=== PATIENT | female | born 1990 | race Caucasian/White ===

== ENCOUNTER 2017-05-18 08:40 | Emergency (ER) | payer MEDICAID ==
[~2017-05-18] VITALS: Ht 154.9 cm; Wt 58.0 kg
[~2017-05-18 08:40] MED LIST: ACET500C5 PO; IBUP-1542 PO; MECL25TA2 PO; ONDA4TAB14 PO; PREN-46 PO; TRAM50TA2 PO
[2017-05-18 08:44] VITALS: Ht 154.9 cm; Wt 58.0 kg
--- NOTE | 2017-05-18 09:08 | ERD ---
ER Documentation Chief Complaint Date/Time DATE: 05/18/17 TIME: 09:07 Chief Complaint pelvic pain x 1 month HPI 26-year-old female presenting to the emergency department complaining of intermittent, 7 out of 10, crampy pelvic pain that radiates to her back for the past 1 month. Patient admits to having associated nausea. She has had a couple episodes of vomiting in this past month. She denies any sexual activity. She denies vaginal discharge. She states that her last menstrual period was April 26 and was a regular lasting 2 days and describes does not like menstrual period. Patient denies diarrhea, constipation. She denies any and medications for this. She denies any relevant medical problems ROS All systems reviewed and are negative except as per history of present illness. Medications Home Meds Active Scripts Ibuprofen* (Motrin*) 600 Mg Tab, 600 MG PO Q6H Y for PAIN AND OR ELEVATED TEMP, #30 TAB Prov:JOSSIE LUNSFORD PA-C 05/18/17 Ibuprofen* (Motrin*) 600 Mg Tab, 600 MG PO Q6H Y for PAIN AND OR ELEVATED TEMP, #30 TAB Prov:GUI SANTAMARIA NP 10/17/16 Tramadol HCl (Tramadol HCl) 50 Mg Tablet, 50 MG PO Q4 Y for PAIN, #10 TAB Prov:SCARLETT CABRERA PA-C 09/27/16 Ondansetron (Ondansetron Odt) 4 Mg Tab.rapdis, 4 MG PO Q6H Y for NAUSEA AND/OR VOMITING, #15 TAB Prov:SCARLETT CABRERA PA-C 09/27/16 Acetaminophen* (Tylophen*) 500 Mg Capsule, 1 CAP PO Q6H Y for PAIN AND OR ELEVATED TEMP, #20 CAP Prov:SCARLETT CABRERA PA-C 09/27/16 Ibuprofen* (Motrin*) 600 Mg Tab, 600 MG PO Q6H Y for PAIN AND OR ELEVATED TEMP, #30 TAB Prov:GUI SANTAMARIA NP 02/23/16 Meclizine Hcl* (Antivert*) 25 Mg Tablet, 25 MG PO Q6H Y for dizziness, #20 TAB Prov:GUI SANTAMARIA NP 02/23/16 Reported Medications Vit #108/Iron/Fa ( ONE TABLET) 1 Each Tablet, 1 EACH PO DAILY 03/22/13 Allergies Allergies: Coded Allergies: No Known Allergy (Unverified , 03/22/13) PMhx/Soc History of Surgery: No Anesthesia Reaction: No Hx Neurological Disorder: No Hx Respiratory Disorders: No Hx Cardiac Disorders: No Hx Psychiatric Problems: No Hx Miscellaneous Medical Probl: No Hx Alcohol Use: No Hx Substance Use: No Hx Tobacco Use: No Physical Exam Vitals Vital Signs Date Time Temp Pulse Resp B/P Pulse Ox O2 Delivery O2 Flow Rate FiO2 05/18/17 08:44 98.1 79 16 110/62 100 Physical Exam GENERAL: well-developed/well-nourished, in no apparent distress, non-toxic appearing HENT: NC/AT, moist mucous membranes EYES: Conjunctiva normal NECK: Supple, no lymphadenopathy PULM: CTA bilaterally, no rales, rhonchi, or wheezing heard CV: Normal S1S2, RRR, good capillary refill GI: Soft, non-distended, tender to palpation in the pelvic region Normal bowel sounds, no masses or organomegaly felt on exam No gross peritonitis, no bruits Negative Rovsing, negative Rogers, negative McBurney's point, Negative CVAT BACK: No masses EXT: No clubbing, cyanosis, or edema NEURO: Alert and Orientated SKIN: Intact, normal turgor PSYCH: Normal mood and mentation Result Diagram: 05/18/17 1044 Results 24 hrs Laboratory Tests Test 05/18/17 09:07 05/18/17 10:44 Urine Color YELLOW Urine Clarity CLEAR Urine pH 6.0 Urine Specific [place] 1.018 Urine Ketones NEGATIVEmg/dL Urine Nitrite NEGATIVEmg/dL Urine Bilirubin NEGATIVEmg/dL Urine Urobilinogen NEGATIVEmg/dL Urine Leukocyte Esterase TRACELeu/ul Urine Microscopic RBC 3/HPF Urine Microscopic WBC 1/HPF Urine Squamous Epithelial Cells FEW/HPF Urine Hemoglobin 1+mg/dL Urine Glucose NEGATIVEmg/dL Urine Total Protein NEGATIVEmg/dl White Blood Count 6.210^3/ul Red Blood Count 3.9110^6/ul Hemoglobin 12.4g/dl Hematocrit 37.0% Mean Corpuscular Volume 94.6fl Mean Corpuscular Hemoglobin 31.7pg Mean Corpuscular Hemoglobin Concent 33.5g/dl Red Cell Distribution Width 12.4% Platelet Count 70194^3/UL Mean Platelet Volume 9.7fl Neutrophils % 39.1% Lymphocytes % 33.9% Monocytes % 8.8% Eosinophils % 16.9% Basophils % 1.1% Nucleated Red Blood Cells % 0.0/100WBC Neutrophils # 2.410^3/ul Lymphocytes # 2.110^3/ul Monocytes # 0.510^3/ul Eosinophils # 1.010^3/ul Basophils # 0.110^3/ul Nucleated Red Blood Cells # 0.010^3/ul Procedures/MDM This is a 26-year-old female presenting to the emergency department complaining of intermittent pelvic pain that radiates to her back for the past month, this is likely due to a left ovarian hemorrhagic cyst. There was no evidence of ruptured cyst, ovarian torsion, urinary tract infection, . Patient is hemodynamic stable to be discharged home, hemoglobin is normal. Patient is appropriate for pain management and to follow-up as an outpatient with an OB/ [employer]UE[employer] SERVICES COORDINATOR. Patient was given prescription for ibuprofen. I discussed with her to return the ER for any worsening signs or symptoms. She understands and agrees with this plan Pelvic ultrasound: 1. 2.7 cm left ovarian hemorrhagic cyst. Interval resolution of previously noted right ovarian hemorrhagic cyst. 2. Small free fluid in the pelvis. 3. Otherwise, unremarkable pelvic ultrasound. Departure Diagnosis: Primary Impression: Hemorrhagic cyst Condition: Stable JOSSIE LUNSFORD PA-C May 18, 2017 09:08
--- NOTE | 2017-05-18 09:49 | RADRPT ---
PROCEDURE: US Pelvis CLINICAL INDICATION: Pelvic pain. TECHNIQUE: Sonographic evaluation of the pelvis was performed utilizing both transabdominal and tr ansvaginal technique. Curved array transabdominal transducer technique as well as a high frequency endovaginal probe was utilized. Images were reviewed on the high-resolution PACS workstation. COMPARISON: Pelvic ultrasound dated 09/27/2016 FINDINGS: The uterus is normal in size, echogenicity, and morphology measuring 6.7 x 4.1 x 5.3 cm in dimension . The uterus is anteverted in normal position. The endometrium is normal for a menstrual age fema le measuring 11 mm in diameter. The normal trilaminar stripe of the endometrium is preserved. The right ovary measures 4.0 x 1.9 x 2.3 cm in dimension. The left ovary measures 4.2 x 3.2 x 2.9 c m in dimension. There is a 2.7 cm left ovarian hemorrhagic cyst. Normal Doppler flow is demonstrat ed to both ovaries. There are no adnexal masses. There is small free fluid in the pelvis. IMPRESSION: 1. 2.7 cm left ovarian hemorrhagic cyst. Interval resolution of previously noted right ovarian hem orrhagic cyst. 2. Small free fluid in the pelvis. 3. Otherwise, unremarkable pelvic ultrasound. RPTAT: HH .Sudha Kapadia MD, Date Time Electronically viewed and signed by .Sudha Kapadia MD, on 05/18/2017 09:48 .G/
[2017-05-18 09:50] LABS: ADD UMIC YES; UR ASCORBIC ACID NEGATIVE (NEGATIVE); UR BILIRUBIN (Dip) NEGATIVE (NEGATIVE); UR BLOOD (Dip) 1+ mg/dL (NEGATIVE); UR CLARITY CLEAR (CLEAR); UR COLOR YELLOW (YELLOW); UR GLUCOSE (Dip) NEGATIVE (NEGATIVE); UR KETONES (Dip) NEGATIVE (NEGATIVE); UR LEUKOCYTE ESTERASE (Dip) TRACE Leu/ul (NEGATIVE); UR NITRITE (Dip) NEGATIVE (NEGATIVE); UR RBC 3 /HPF (0-5); UR SPECIFIC GRAVITY (Dip) 1.018 (1.003-1.030); UR SQUAMOUS EPITHELIAL CELL FEW /HPF (FEW); UR TOTAL PROTEIN (Dip) NEGATIVE (NEGATIVE); UR UROBILINOGEN (Dip) NEGATIVE (NEGATIVE)
[2017-05-18 10:57] LABS: BASOPHIL # 0.1 10^3/ul (0.0-0.1); BASOPHILS % 1.1 % (0.0-2.0); EOSINOPHILS % 16.9 % (0.0-7.0); HEMOGLOBIN 12.4 g/dl (12.0-16.0); LYMPHOCYTES # 2.1 10^3/ul (0.8-2.9); LYMPHOCYTES % 33.9 % (15.0-51.0); MEAN CORPUSCULAR HEMOGLOBIN 31.7 pg (29.0-33.0); MEAN CORPUSCULAR HGB CONC 33.5 g/dl (32.0-37.0); MEAN CORPUSCULAR VOLUME 94.6 fl (82.0-101.0); MEAN PLATELET VOLUME 9.7 fl (7.4-10.4); MONOCYTE # 0.5 10^3/ul (0.3-0.9); MONOCYTES % 8.8 % (0.0-11.0); NEUTROPHIL # 2.4 10^3/ul (1.6-7.5); NEUTROPHILS % 39.1 % (39.0-77.0); PLATELET COUNT 233 10^3/UL (140-415); RED BLOOD COUNT 3.91 10^6/ul (4.20-5.40); RED CELL DISTRIBUTION WIDTH 12.4 % (11.5-14.5); WHITE BLOOD COUNT 6.2 10^3/ul (4.8-10.8)
[2017-05-18] MEDS ORDERED: IBUP-1542 PO (11:03)
== END 2017-05-18 12:27 | disposition home or self-care (01) ==
LOC: FTE 08:40
DX: N83.202 Unspecified ovarian cyst, left side (principal)
CPT/HCPCS: 76830; 76856; 81001; 85025; 86850; 86900; 86901; Z7502

== ENCOUNTER 2017-08-18 04:59 | Emergency (ER) | payer MEDICAID ==
[~2017-08-18] VITALS: Ht 165.1 cm; Wt 61.0 kg
[2017-08-18 05:19] VITALS: Ht 165.1 cm; Wt 61.0 kg
[2017-08-18] MEDS ORDERED: ACETAMINOPHEN 325 MG TAB PO ONE (06:30)
--- NOTE | 2017-08-18 06:54 | ERD ---
ER Documentation Chief Complaint Chief Complaint vag bleed and "ovary pain" since this am. "dark blood" per pt +preg (JACIEL VERA PA-C) HPI 26-year-old female, 5 weeks , presenting with a chief complaint of pelvic pain and bleeding. Patient states that the pelvic pain has been ongoing since the beginning of the but has gotten worse over the past week. States that the blood is minimal and is only been for the past 1 day. No aggravating or alleviating factors. Has not taken any medications to relieve the symptoms. Denies fever, dysuria, nausea, vomiting, diarrhea, vaginal discharge, foul odor, change in fetus quickening, or identifiable patterns of symptoms. Patient has no other complaints and describes no other associated manifestations. Nursing notes have been reviewed and are consistent with history given. (JACIEL VERA PA-C) ROS All systems reviewed and are negative except as per history of present illness. (JACIEL VERA PA-C) Medications Home Meds Active Scripts Ibuprofen* (Motrin*) 600 Mg Tab, 600 MG PO Q6H Y for PAIN AND OR ELEVATED TEMP, #30 TAB Prov:JOSSIE LUNSFORD PA-C 05/18/17 Ibuprofen* (Motrin*) 600 Mg Tab, 600 MG PO Q6H Y for PAIN AND OR ELEVATED TEMP, #30 TAB Prov:GUI SANTAMARIA NP 10/17/16 Tramadol HCl (Tramadol HCl) 50 Mg Tablet, 50 MG PO Q4 Y for PAIN, #10 TAB Prov:SCARLETT CABRERA PA-C 09/27/16 Ondansetron (Ondansetron Odt) 4 Mg Tab.rapdis, 4 MG PO Q6H Y for NAUSEA AND/OR VOMITING, #15 TAB Prov:SCARLETT CABRERA PA-C 09/27/16 Acetaminophen* (Tylophen*) 500 Mg Capsule, 1 CAP PO Q6H Y for PAIN AND OR ELEVATED TEMP, #20 CAP Prov:SCARLETT CABRERA PA-C 09/27/16 Ibuprofen* (Motrin*) 600 Mg Tab, 600 MG PO Q6H Y for PAIN AND OR ELEVATED TEMP, #30 TAB Prov:GIU SANTAMARIA NP 02/23/16 Meclizine Hcl* (Antivert*) 25 Mg Tablet, 25 MG PO Q6H Y for dizziness, #20 TAB Prov:GUI SANTAMARIA MANAGER ENGLISH 02/23/16 Reported Medications Vit #108/Iron/Fa ( ONE TABLET) 1 Each Tablet, 1 EACH PO DAILY 03/22/13 Allergies Allergies: Coded Allergies: No Known Allergy (Unverified , 08/18/17) PMhx/Soc Medical and Surgical Hx: pt denies Medical Hx, pt denies Surgical Hx History of Surgery: No Anesthesia Reaction: No Hx Neurological Disorder: No Hx Respiratory Disorders: No Hx Cardiac Disorders: No Hx Psychiatric Problems: No Hx Miscellaneous Medical Probl: No Hx Alcohol Use: No Hx Substance Use: No Hx Tobacco Use: No (JACIEL VERA PA-C) Physical Exam Physical Exam Const: Healthy-appearing. Well-nourished. Well-developed. No acute distress. Abd: Mildly tender pelvic area bilaterally. No masses identified. Soft , non tender, non distended. No guarding, masses. Normal bowel sounds. No McBurney's point tenderness. Head: Normocephalic, Atraumatic. Eyes: Non-injected; No scleral erythema, discharge or foreign body. EOMI and CASANDRA bilaterally. Ears: Normal External Ears, EACs clear, TM normal bilaterally without erythema. Nose: Normal nose without discharge, septal deviation, or sinus tenderness. Oral: No oral edema visualized. Mucous membranes moist and pink. Neck: No cervical lymphadenopathy, masses or goiter palpated. Trachea midline. Supple ~ No meningismus. Pulm: Good air movement in upper and lower respiratory tracts. No dyspnea, stridor, tripoding or drooling. Clear to auscultation bilaterally. Cardio: Regular rate and rhythm; No murmurs, gallops or rubs auscultated. No JVD grossly observed. Radial and posterior tibial pulses 2+ bilaterally. No cyanosis. Capillary refill less than 2 seconds. MS: Normal motor strength, normal tone with gross examination. Skin: No petechiae or rashes. No ulcer, induration, jaundice. Good turgor. Back: No midline, flank or CVA tenderness. Ext: No cyanosis, edema or palpable cord. Normal movement of all extremities grossly observed. Neur: Awake, alert and oriented x3. Neurovascularly intact bilaterally. Psych: Normal Mood and Affect. (JACIEL VERA PA-C) Results 24 hrs Laboratory Tests Test 08/18/17 06:33 08/18/17 06:50 Urine Color YELLOW Urine Clarity CLEAR Urine pH 7.0 Urine Specific [place] 1.014 Urine Ketones NEGATIVEmg/dL Urine Nitrite NEGATIVEmg/dL Urine Bilirubin NEGATIVEmg/dL Urine Urobilinogen NEGATIVEmg/dL Urine Leukocyte Esterase 1+Jayna/ul Urine Microscopic RBC 1/HPF Urine Microscopic WBC 4/HPF Urine Bacteria FEW/HPF Urine Hemoglobin 2+mg/dL Urine Glucose NEGATIVEmg/dL Urine Total Protein NEGATIVEmg/dl White Blood Count 5.910^3/ul Red Blood Count 3.6510^6/ul Hemoglobin 11.5g/dl Hematocrit 34.2% Mean Corpuscular Volume 93.7fl Mean Corpuscular Hemoglobin 31.5pg Mean Corpuscular Hemoglobin Concent 33.6g/dl Red Cell Distribution Width 12.1% Platelet Count 77507^3/UL Mean Platelet Volume 9.5fl Neutrophils % 46.6% Lymphocytes % 33.3% Monocytes % 7.8% Eosinophils % 11.1% Basophils % 1.0% Nucleated Red Blood Cells % 0.0/100WBC Neutrophils # 2.810^3/ul Lymphocytes # 2.010^3/ul Monocytes # 0.510^3/ul Eosinophils # 0.710^3/ul Basophils # 0.110^3/ul Nucleated Red Blood Cells # 0.010^3/ul Beta HCG, Quantitative 44733.0mIU/ml Current Medications Medications (Trade) Dose Ordered Sig/Johanny Route PRN Reason Start Time Stop Time Status Last Admin Dose Admin Acetaminophen (Tylenol Tab) 650 mg ONCE ONCE PO 08/18/17 06:30 08/18/17 06:31 DC 08/18/17 06:41 DIAGNOSTIC IMAGING REPORT Patient: KENYON SEPULVEDA : 1990 Age: 26 Sex: F MR #: [id number] DOS: 08/18/17613 Ordering MD: JACIEL VERA PA-C Location: [facility] Room/Bed: PROCEDURE: US OB. CLINICAL INDICATION: Vaginal bleeding. Early . TECHNIQUE: Transabdominal and transvaginal views of the pelvis are available for review. COMPARISON: No prior studies are available for comparison. FINDINGS: There is an intrauterine gestational sac with a yolk sac and pole with discernible heart rate. There is a small adjacent subchorionic bleed measuring 1.9 x 0.9 cm. [place]-rump length: 0.62 cm heart rate: 105 bpm Ultrasound estimated gestational age: 6 wk 6 days. Gestational sac with diameter of 2.41 cm was seen (7 weeks 2 days). Unremarkable left ovary. Arterial flow of the left ovary was seen. Small bilateral ovarian follicles and 2.6 cm right ovarian corpus luteum cyst. Arterial flow of the right ovary was seen. There is no free fluid. IMPRESSION: Single live intrauterine with an estimated gestational age of 6 weeks and 6 days. Small subchorionic bleed. Right corpus luteum cyst.. RPTAT: [facility] (YOLANDA ARMANDO MD) Procedures/MDM 26 y/o female patient at approximately 5 weeks per last menstrual period, presents to the ED c/o vaginal spotting since onset of but became slightly heavier during the last 2 days. Vital signs stable, Physical exam unremarkable. Differential diagnosis include but not limited to: UTI, threatening , incomplete versus complete , ectopic , physiologic implantation bleeding, molar . Pertinent Data: Labs: CBC: normal HC,080 OB US: Single live intrauterine with an estimated gestational age of 6 weeks and 6 days. Small subchorionic bleed. Right corpus luteum cyst Physical examination and clinical presentation most likely consistent with threatening . During the ED course the patient remained hemodynamically stable and asymptomatic. Results and clinical impression discussed with patient who agrees with management. The patient is stable to be treated outpatient and will be discharged home with close monitoring and follow-up in 2 days with her primary physician. Bed rest and pelvic rest recommended until further medical evaluation. The patient was instructed regarding the outcomes and the potential complications like severe bleeding and . If the patient presents severe bleeding or pain, she was instructed to return to the hospital immediately. (YOLANDA ARMANDO MD) Departure Diagnosis: Primary Impression: Vaginal bleeding in patient at less than 20 weeks gestation Condition: Stable JACIEL VERA PA-C Aug 18, 2017 06:54 YOLANDA ARMANDO MD Sep 01, 2017 18:58
[2017-08-18 07:00] LABS: ADD UMIC YES; UR ASCORBIC ACID NEGATIVE (NEGATIVE); UR BACTERIA FEW /HPF (NONE SEEN); UR BILIRUBIN (Dip) NEGATIVE (NEGATIVE); UR BLOOD (Dip) 2+ mg/dL (NEGATIVE); UR CLARITY CLEAR (CLEAR); UR COLOR YELLOW (YELLOW); UR GLUCOSE (Dip) NEGATIVE (NEGATIVE); UR KETONES (Dip) NEGATIVE (NEGATIVE); UR LEUKOCYTE ESTERASE (Dip) 1+ Leu/ul (NEGATIVE); UR NITRITE (Dip) NEGATIVE (NEGATIVE); UR RBC 1 /HPF (0-5); UR SPECIFIC GRAVITY (Dip) 1.014 (1.003-1.030); UR TOTAL PROTEIN (Dip) NEGATIVE (NEGATIVE); UR UROBILINOGEN (Dip) NEGATIVE (NEGATIVE)
[2017-08-18 07:09] LABS: BASOPHIL # 0.1 10^3/ul (0.0-0.1); EOSINOPHILS # 0.7 10^3/ul (0.0-0.5); EOSINOPHILS % 11.1 % (0.0-7.0); HEMATOCRIT 34.2 % (37.0-47.0); HEMOGLOBIN 11.5 g/dl (12.0-16.0); LYMPHOCYTES % 33.3 % (15.0-51.0); MEAN CORPUSCULAR HEMOGLOBIN 31.5 pg (29.0-33.0); MEAN CORPUSCULAR HGB CONC 33.6 g/dl (32.0-37.0); MEAN CORPUSCULAR VOLUME 93.7 fl (82.0-101.0); MEAN PLATELET VOLUME 9.5 fl (7.4-10.4); MONOCYTE # 0.5 10^3/ul (0.3-0.9); MONOCYTES % 7.8 % (0.0-11.0); NEUTROPHIL # 2.8 10^3/ul (1.6-7.5); NEUTROPHILS % 46.6 % (39.0-77.0); PLATELET COUNT 219 10^3/UL (140-415); RED BLOOD COUNT 3.65 10^6/ul (4.20-5.40); RED CELL DISTRIBUTION WIDTH 12.1 % (11.5-14.5); WHITE BLOOD COUNT 5.9 10^3/ul (4.8-10.8)
--- NOTE | 2017-08-18 08:41 | RADRPT ---
PROCEDURE: US OB. CLINICAL INDICATION: Vaginal bleeding. Early . TECHNIQUE: Transabdominal and transvaginal views of the pelvis are available for review. COMPARISON: No prior studies are available for comparison. FINDINGS: There is an intrauterine gestational sac with a yolk sac and pole with discernible heart rate. There is a small adjacent subchorionic bleed measuring 1.9 x 0.9 cm. [place]-rump length:0.62 cm heart rate:105 bpm Ultrasound estimated gestational age:6 wk 6 days. Gestational sac with diameter of 2.41 cm was seen (7 weeks 2 days). Unremarkable left ovary. Arterial flow of the left ovary was seen. Small bilateral ovarian follicles and 2.6 cm right ovarian corpus luteum cyst. Arterial flow of the right ovary was seen. There is no free fluid. IMPRESSION: Single live intrauterine with an estimated gestational age of 6 weeks and 6 days. Small vela bchorionic bleed. Right corpus luteum cyst.. RPTAT: [facility] Physician Penelope Date Time Electronically viewed and signed by Physician Penelope on 08/18/2017 07:37 BRIGIDO/
== END 2017-08-18 09:19 | disposition home or self-care (01) ==
LOC: FTE 04:59
DX: O20.9 Hemorrhage in early pregnancy, unspecified (principal); R10.2 Pelvic and perineal pain; Z3A.01 Less than 8 weeks gestation of pregnancy
CPT/HCPCS: 76801; 76817; 81001; 84702; 85025; 86900; 86901; Z7610; 36415

== ENCOUNTER 2017-12-13 17:05 | Outpatient (CLI) | END 2017-12-13 19:05 | disposition home or self-care (01) ==

== ENCOUNTER 2018-04-07 04:00 | Inpatient (IN) | END 2018-04-09 16:30 | disposition home or self-care (01) | DRG 775 ==